=== PATIENT | male | born 1975 | race Caucasian/White ===

== ENCOUNTER 2017-06-02 16:13 | Emergency (ER) | payer SELFPAY ==
[2017-06-02] MEDS ORDERED: Ketorolac INJ* 30 MG/ML 1 ML VIAL IV PUSH ONE (17:51)
[2017-06-02] MEDS ORDERED: Morphine INJ* 4 MG/ML 1 ML SYRINGE IV ONE (17:51)
[2017-06-02] MEDS ORDERED: NS 0.9% 1000 ML* 2,000 ML IV ONE (17:51)
[2017-06-02] MEDS ORDERED: Ondansetron INJ* 2 MG/ML VIAL IV ONE (17:51)
[2017-06-02 18:11] LABS: Hematocrit 44 % (42-52); Mean Corpuscular HGB Conc 34 g/dl (31-36); Mean Corpuscular Hemoglobin 30 pg (27-31); Mean Corpuscular Volume 87 fL (80-94); Mean Platelet Volume 10 um3 (7.4-10.4); Red Blood Count 5.08 10^6/ul (4.0-5.4); Red Cell Distribution Width 13 % (10.5-15); White Blood Count 12.4 10^3/ul (3.5-10.8)
--- NOTE | 2017-06-02 18:16 | ED ---
GI/ HPI - HPI Summary HPI Summary: 42M w/ PMH of kidney stones presents with left sided flank pain since yesterday. He states he passed one stone yesterday but that he felt another stone behind it. He admits to nausea but denies any v/d/c. He denies any hematuria, frequnecy, urgency. no fevers. just moved here from [facility]. His last kidney stone was 6 years ago. He had lithotripsy done then. Only surgeries previous was for pilondial cyst. - History of Current Complaint Pain Intensity: 9 <Regina Santos - Last Filed: 06/03/17 04:42> <Dianna Adler - Last Filed: 06/04/17 07:44> - History of Current Complaint Chief Complaint: EDFlankPain Time Seen by Provider: 06/02/17 17:39 Stated Complaint: RT SIDE PAIN - Allergy/Home Medications Allergies/Adverse Reactions: Allergies Allergy/AdvReac Type Severity Reaction Status Date / Time No Known Allergies Allergy Verified 06/03/17 13:27 PMH/Surg Hx/FS Hx/Imm Hx Endocrine/Hematology History: Denies: Hx Anticoagulant Therapy, Hx Diabetes Cardiovascular History: Denies: Hx Hypertension History: Reports: Hx Kidney Stones - Immunization History Date of Tetanus Vaccine: unknown Date of Influenza Vaccine: NO Infectious Disease History: Reports: Traveled Outside the [place] in Last 30 Days - Family History Known Family History: Positive: Cardiac Disease - Social History Alcohol Use: None Substance Use Type: Reports: None Smoking Status (MU): Never Smoked Tobacco <Regina Santos - Last Filed: 06/03/17 04:42> Review of Systems Negative: Fever Negative: Chest Pain Negative: Shortness Of Breath Positive: Abdominal Pain, Nausea. Negative: Vomiting All Other Systems Reviewed And Are Negative: Yes <Regina Santos - Last Filed: 06/03/17 04:42> Physical Exam Triage Information Reviewed: Yes Vital Signs On Initial Exam: Initial Vitals Temp Pulse Resp BP Pulse Ox 98.6 F 66 20 128/72 98 06/02/17 16:37 06/02/17 16:37 06/02/17 16:37 06/02/17 16:37 06/02/17 16:37 Vital Signs Reviewed: Yes Appearance: Positive: Pain Distress Skin: Positive: Warm, Dry Head/Face: Positive: Normal Head/Face Inspection Eyes: Positive: Normal, EOMI, PAT, Conjunctiva Clear ENT: Positive: Normal ENT inspection, Pharynx normal, TMs normal Respiratory/Lung Sounds: Positive: Clear to Auscultation, Breath Sounds Present Cardiovascular: Positive: Normal, RRR Abdomen Description: Positive: Soft, CVA Tenderness (L), Other: - tenderness on left side Bowel Sounds: Positive: Present - Ilndsay Coma Scale Coma Scale Total: 15 <Regina Santos - Last Filed: 06/03/17 04:42> Vital Signs On Initial Exam: Initial Vitals Temp Pulse Resp BP Pulse Ox 98.6 F 66 20 128/72 98 06/02/17 16:37 06/02/17 16:37 06/02/17 16:37 06/02/17 16:37 06/02/17 16:37 <Dianna Adler - Last Filed: 06/04/17 07:44> Diagnostics - Vital Signs Vital Signs Temp Pulse Resp BP Pulse Ox 06/02/17 18:02 18 06/02/17 17:36 98.6 F 66 18 128/72 98 06/02/17 16:37 98.6 F 66 20 128/72 98 - Laboratory Lab Results: Lab Results 06/02/17 Range/Units 17:54 WBC 12.4 H (3.5-10.8) 10^3/ul RBC 5.08 (4.0-5.4) 10^6/ul Hgb 15.0 (14.0-18.0) g/dl Hct 44 (42-52) % MCV 87 (80-94) fL MCH 30 (27-31) pg MCHC 34 (31-36) g/dl RDW 13 (10.5-15) % Plt Count 200 (150-450) 10^3/ul MPV 10 (7.4-10.4) um3 Neut % (Auto) 73.2 (38-83) % Lymph % (Auto) 14.1 L (25-47) % [place] % (Auto) 11.7 H (1-9) % Eos % (Auto) 0.6 (0-6) % Baso % (Auto) 0.4 (0-2) % Absolute Neuts (auto) 9.1 H (1.5-7.7) 10^3/ul Absolute Lymphs (auto) 1.7 (1.0-4.8) 10^3/ul Absolute Monos (auto) 1.5 H (0-0.8) 10^3/ul Absolute Eos (auto) 0.1 (0-0.6) 10^3/ul Absolute Basos (auto) 0.1 (0-0.2) 10^3/ul Absolute Nucleated RBC 0.02 10^3/ul Nucleated RBC % 0.1 Result Diagrams: 06/02/17 17:54 06/02/17 17:54 Lab Statement: Any lab studies that have been ordered have been reviewed, and results considered in the medical decision making process. - CT abd CT Interpretation: Positive (See Comments) - IMPRESSION: THERE IS A 4 X 5 MM CALCULUS IN THE PROXIMAL LEFT URETER CAUSING MODERATE TO SEVERE HYDRONEPHROSIS. THERE ARE SEVERAL ADDITIONAL LEFT RENAL CALCULI. CT Interpretation Completed By: Radiologist <Regina Santos - Last Filed: 06/03/17 04:42> - Vital Signs Vital Signs Temp Pulse Resp BP Pulse Ox 06/02/17 19:58 99 F 54 16 117/73 98 06/02/17 18:02 18 06/02/17 17:36 98.6 F 66 18 128/72 98 06/02/17 16:37 98.6 F 66 20 128/72 98 - Laboratory Lab Results: Lab Results 06/02/17 06/02/17 06/02/17 Range/Units 17:54 17:54 19:56 WBC 12.4 H (3.5-10.8) 10^3/ul RBC 5.08 (4.0-5.4) 10^6/ul Hgb 15.0 (14.0-18.0) g/dl Hct 44 (42-52) % MCV 87 (80-94) fL MCH 30 (27-31) pg MCHC 34 (31-36) g/dl RDW 13 (10.5-15) % Plt Count 200 (150-450) 10^3/ul MPV 10 (7.4-10.4) um3 Neut % (Auto) 73.2 (38-83) % Lymph % (Auto) 14.1 L (25-47) % [place] % (Auto) 11.7 H (1-9) % Eos % (Auto) 0.6 (0-6) % Baso % (Auto) 0.4 (0-2) % Absolute Neuts (auto) 9.1 H (1.5-7.7) 10^3/ul Absolute Lymphs (auto) 1.7 (1.0-4.8) 10^3/ul Absolute Monos (auto) 1.5 H (0-0.8) 10^3/ul Absolute Eos (auto) 0.1 (0-0.6) 10^3/ul Absolute Basos (auto) 0.1 (0-0.2) 10^3/ul Absolute Nucleated RBC 0.02 10^3/ul Nucleated RBC % 0.1 Sodium 139 (133-145) mmol/L Potassium 3.7 (3.5-5.0) mmol/L Chloride 105 (101-111) mmol/L Carbon Dioxide 27 (22-32) mmol/L Anion Gap 7 (2-11) mmol/L BUN 16 (6-24) mg/dL Creatinine 1.44 H (0.67-1.17) mg/dL Est GFR ( Amer) 68.9 (>60) Est GFR (Non-Af Amer) 53.5 (>60) BUN/Creatinine Ratio 11.1 (8-20) Glucose 95 (70-100) mg/dL Calcium 9.2 (8.6-10.3) mg/dL Total Bilirubin 1.00 (0.2-1.0) mg/dL AST 18 (13-39) U/L ALT 9 (7-52) U/L Alkaline Phosphatase 46 (34-104) U/L C-React Prot High Sens 4.84 mg/L Total Protein 7.0 (6.4-8.9) g/dL Albumin 4.2 (3.2-5.2) g/dL Globulin 2.8 (2-4) g/dL Albumin/Globulin Ratio 1.5 (1-3) Lipase 17 (11.0-82.0) U/L Urine Color Yellow Urine Appearance Clear Urine pH 5.0 (5-9) Ur Specific [place] 1.030 (1.010-1.030) Urine Protein Negative (Negative) Urine Ketones 1+ H (Negative) Urine Blood Negative (Negative) Urine Nitrate Negative (Negative) Urine Bilirubin Negative (Negative) Urine Urobilinogen Negative (Negative) Ur Leukocyte Esterase Negative (Negative) Urine Glucose Negative (Negative) Urine Ascorbic Acid * H (Negative) Result Diagrams: 06/02/17 17:54 06/02/17 17:54 Lab Statement: Any lab studies that have been ordered have been reviewed, and results considered in the medical decision making process. <Dianna Adler - Last Filed: 06/04/17 07:44> GIGU Course/Dx - Course Course Of Treatment: 42M w/ PMH of kidney stones presents with left sided flank pain since yesterday. He states he passed one stone yesterday but that he felt another stone behind it. He admits to nausea but denies any v/d/c. He denies any hematuria, frequnecy, urgency. no fevers. on exam pos CVA left. u/a normal. CT shows 5mm stone. patient comfortable after morphine so will d/c home to follow up with urology. patient understands and agrees with plan. - Diagnoses Differential Diagnoses - Male: Pyelonephritis, Ureteral Calculi, Urinary Tract Infection <Regina Santos - Last Filed: 06/03/17 04:42> <Dianna Adler - Last Filed: 06/04/17 07:44> - Diagnoses Provider Diagnoses: Kidney stone Discharge <Regina Santos - Last Filed: 06/03/17 04:42> <Dianna Adler - Last Filed: 06/04/17 07:44> - Discharge Plan Condition: Good Disposition: HOME Prescriptions: Ondansetron ODT TAB* [Zofran 4 MG Odt TAB*] 4 mg PO Q6H PRN #16 tab.odt PRN Reason: Nausea Tamsulosin CAP* [Flomax CAP*] 0.4 mg PO DAILY #7 cap oxyCODONE/Acetamin 5/325 MG* [Percocet 5/325 TAB*] 1 tab PO Q6H PRN #20 tab MDD 4 PRN Reason: Pain Patient Education Materials: Kidney Stones (ED) Referrals: Pernell Gambino MD [Medical Doctor] - [facility] [Outside] Additional Instructions: Take ibuprofen every 6 hours and narcotic as needed every 6 hours Take Zofran every 6 hours for nausea as needed Take Flomax daily starting tomorrow, first dose given in ED until stone expelled , make sure stand up slowly Follow up with urology, call office tomorrow for appointment Strain urine until collect stone Return to ED if unable to manage pain at home, develop fever, or any new or worsening symptoms Attestation Statement User Type: Provider - I was available for consult. This patient was seen by the ÁNGELA. The patient was not presented to, seen by, or examined by me. -Radames <Dianna Adler - Last Filed: 06/04/17 07:44>
[2017-06-02 18:29] LABS: Albumin 4.2 g/dL (3.2-5.2); BUN/Creatinine Ratio 11.1 (8-20); Calcium 9.2 mg/dL (8.6-10.3); EGFR African American 68.9 (>60); EGFR Non-African American 53.5 (>60); Globulin 2.8 g/dL (2-4); Potassium 3.7 mmol/L (3.5-5.0)
--- NOTE | 2017-06-02 18:44 | RAD ---
INDICATION: Left flank abdominal pain. COMPARISON: There are no prior studies available for comparison. TECHNIQUE: A CT scan of the abdomen and pelvis was performed without intravenous or oral contrast. Contiguous axial sections were obtained from the lung bases through the symphysis pubis. Images were reconstructed in the coronal and sagittal planes. FINDINGS: There is mild dependent bilateral lower lobe subsegmental atelectasis. No pleural effusion is present. The liver and spleen are within normal limits in size without significant focal abnormality on this noncontrast study. No calcified gallstones are seen. The pancreas appears to be within normal limits in size. The adrenal glands appear to be within normal limits. The right kidney appears normal. There are couple punctate calculi in the upper pole of the left kidney and a 0.9 cm calculus in the lower pole of the left kidney. The left kidney is enlarged. There is relatively prominent perinephric stranding. There is dilatation of the renal calyces and pelvis to the level of a 4 x 5 mm calculus in the proximal left ureter. This is causing moderate to severe hydronephrosis. No bladder calculi are seen. The aorta is normal in caliber without significant calcific plaque. No significant enlarged retroperitoneal lymph nodes are seen. The stomach, small and large bowel appear nondistended. The appendix is within normal limits. There are a few scattered diverticuli in the descending and sigmoid colon without evidence for diverticulitis. No free intraperitoneal air or fluid is seen. No significant focal osseous abnormality is seen. IMPRESSION: THERE IS A 4 X 5 MM CALCULUS IN THE PROXIMAL LEFT URETER CAUSING MODERATE TO SEVERE HYDRONEPHROSIS. THERE ARE SEVERAL ADDITIONAL LEFT RENAL CALCULI.
[2017-06-02 20:02] VITALS: BP 117/73
[2017-06-02 20:05] LABS: Urine Bilirubin Negative (Negative); Urine Glucose Negative (Negative); Urine Nitrite Negative (Negative)
[2017-06-02] MEDS ORDERED: Tamsulosin CAP* 0.4 MG PO ONE (20:06)
== END 2017-06-02 20:26 | disposition home or self-care (01) ==
LOC: ED 16:13
DX: N20.0 Calculus of kidney (principal); R10.84 Generalized abdominal pain; R11.0 Nausea; Z87.442 Personal history of urinary calculi
CPT/HCPCS: 36415; 74176; 80053; 81003; 83690; 85025; 86141; 96374; 96375; 99282; J1885; J2270; J2405

== ENCOUNTER 2017-06-03 13:22 | Day surgery (SDC) | payer OTHER ==
--- NOTE | 2017-06-03 13:55 | HP ---
DATE OF ADMISSION: 06/03/2017. AGE: 42-year-old male. ADMITTING DIAGNOSES: 1. Left hydronephrosis. 2. Calculus left proximal ureter. 3. Calculus left kidney. PLANNED PROCEDURE: Left retrograde and left stent insertion (to be followed in near future by shockwave lithotripsy). SURGEON: Dr. Giuseppe Salas. HISTORY OF PRESENT ILLNESS: Cristino Zambrano is a 42-year-old gentleman who is visiting from [facility]. He has a history of recurrent bilateral renal calculi. He had been in the emergency room for left flank pain and nausea and was noted to have what was described as a 5 mm calculus in the proximal left ureter with moderate to severe hydronephrosis. In addition, there was a 9 mm calculus in the lower pole of the left kidney. He was seen in my office earlier today and continues to have fairly severe pain, nausea and vomiting in spite of taking Percocet. Ultrasound revealed a 6.5 mm calculus in the proximal left ureter with an additional 1 cm calculus in the left kidney with persistent hydronephrosis. He was given the option of trying to continue conservative management with Flomax, but because of the severity of the pain in spite of the Percocet, he opted for and is now being brought in for urgent left stent insertion to be followed in the near future by lithotripsy. PAST MEDICAL HISTORY: Significant for recurrent renal calculi. PAST SURGICAL HISTORY: Significant for surgery for pilonidal cyst, lithotripsy for renal calculi, ureteroscopy and stent insertion. MEDICATIONS ON ADMISSION: Flomax 0.4 mg once a day, Percocet and Zofran prn. ALLERGIES: No known drug allergies. REVIEW OF SYSTEMS: He is otherwise in excellent health. There is no history of diabetes mellitus or any other major systemic illness. There is no history of chest pain or shortness of breath. PHYSICAL EXAMINATION GENERAL: Very uncomfortable-appearing young gentleman. VITAL SIGNS: Blood pressure 120/78, pulse 65 per minute, temperature 97.2, oxygen saturation 96 percent on room air. CARDIOVASCULAR: Regular rate and rhythm. S1, S2. LUNGS: Clear bilaterally. ABDOMEN: Soft with left flank tenderness. IMPRESSION: I reviewed the CT and ultrasound and had a detailed discussion with the patient and his regarding the management options. Again, I did give him the option of trying to continue conservative management to see if the stone will progress distally into the ureter, but because of the intensity of the pain in spite of Percocet, he would like to go ahead and proceed with urgent left stent insertion. I explained the need for a two stage procedure for stent insertion to be followed in the near future by lithotripsy when the lithotripsy machine becomes available, and he understands and agrees with that. PLAN: Left retrograde and left stent insertion. [id number]/[facility] #: [id number] RONALD
[2017-06-03] MEDS ORDERED: cefTRIAXone(*) 2 GM ADDV.VIAL IVPB ONE (14:37)
[2017-06-03] MEDS ORDERED: Iohexol 180 (CONTRAST) 10 ML SDV IV ONE (14:44)
[2017-06-03] MEDS ORDERED: Famotidine IV* 10 MG/ML 2 ML (20 mg) IV ONE (15:32)
[2017-06-03] MEDS ORDERED: Dexamethasone IV* 4 MG/ML 1 ML (4 MG) IV SLOW PU ONE (15:32)
[2017-06-03] MEDS ORDERED: Buffered Lidocaine 0.9% SYRIN* 5 ML/SYR SYRINGE INTRADERM ONE (15:32)
[2017-06-03] MEDS ORDERED: Famotidine IV* 10 MG/ML 2 ML (20 mg) ONE (15:58)
[2017-06-03] MEDS ORDERED: Dexamethasone IV* 4 MG/ML 1 ML (4 MG) ONE (15:58)
[2017-06-03] MEDS ORDERED: Midazolam* 1 MG/ML 5 ML VIAL (5 MG) ONE (16:27)
[2017-06-03] MEDS ORDERED: Scopolamine 1.5 mg* PATCH TRANSDERM PRN (16:32)
[2017-06-03] MEDS ORDERED: Ondansetron INJ* 2 MG/ML VIAL IV PRN (16:32)
[2017-06-03] MEDS ORDERED: HYDROmorphone* 1 MG/ML 1 ML SYR IV PRN (16:32)
[2017-06-03] MEDS ORDERED: fentaNYL* 50 MCG/ML 2 ML VIAL (100 MCG VIAL) IV PRN (16:32)
[2017-06-03] MEDS ORDERED: DiMENhydriNATE IV* 50 MG/ML VIAL IV PUSH PRN (16:32)
[2017-06-03] MEDS ORDERED: oxyCODONE/Acetamin 5/325 MG* TAB PO PRN (16:32)
[2017-06-03] MEDS ORDERED: fentaNYL* 50 MCG/ML 5 ML VIAL (250 MCG VIAL) ONE (16:47)
[2017-06-03] MEDS ORDERED: Lidocaine 2% PF * 5 ML VIAL ONE (16:47)
[2017-06-03] MEDS ORDERED: Ondansetron INJ* 2 MG/ML VIAL ONE (16:47)
[2017-06-03] MEDS ORDERED: Propofol* 10 MG/ML 20 ML BTL IV PUSH ONE (16:47)
[2017-06-03] MEDS ORDERED: Glycopyrrolate IV* 0.2 MG/ML 1 ML VIAL ONE (17:21)
[2017-06-03] MEDS ORDERED: Tamsulosin CAP* 0.4 MG ONE (18:22)
[2017-06-03 18:48] VITALS: BP 129/86
--- NOTE | 2017-06-03 20:10 | RAD ---
CPT II Codes: 6045F INDICATION: Left ureteral stent TECHNIQUE: Intraoperative fluoroscopy was provided during retrograde pyelogram and left ureteral stent placement. FINDINGS: 4 spot films depict retrograde pyelogram with anatomic placement of a left ureteral stent. Fluoroscopy time: 10 seconds IMPRESSION: As above.
--- NOTE | 2017-06-03 20:51 | RAD ---
INDICATION: Status post left ureteral stent placement COMPARISON: Preoperative KUB dated June 03, 2017 acquired at 1058 hours TECHNIQUE: 2 views the abdomen were obtained. FINDINGS: At approximately the L2/L3 level there is a 7 mm calcification at the expected location of the left lower pole collecting system similar in appearance to the previous KUB. There is been anatomic alignment of a left ureteral stent. No large calcifications are seen overlying the course of the left ureter. IMPRESSION: ANATOMIC PLACEMENT OF A LEFT URETERAL STENT WITH A STABLE 7 MM CALCIFICATION AT THE LEFT LOWER POLE COLLECTING SYSTEM.
--- NOTE | 2017-06-04 05:10 | OP ---
DATE OF OPERATION: 06/03/17 - SDS DATE OF : [birth year] - AGE: 42 years, male. SURGEON: Giuseppe Salas MD ANESTHESIOLOGIST: Dr. Dial. ANESTHESIA: General. PRE-OP DIAGNOSES: 1. Left hydronephrosis. 2. Obstructing calculus, left proximal ureter. 3. Left renal calculus. POST-OP DIAGNOSES: 1. Left hydronephrosis. 2. Obstructing calculus, left proximal ureter. 3. Left renal calculus. OPERATIVE PROCEDURE: Cystoscopy, left retrograde pyelogram, left ureteral calculus manipulation, and left stent insertion. COMPLICATIONS: None. POSTOPERATIVE CONDITION: Stable. STENT USED: 6-Kyrgyz stent, left ureter. INDICATIONS: Cristino Zambrano is a 42-year-old gentleman who is visiting from [facility]. He has a history of recurrent renal calculi. He presented with left flank pain, nausea, and vomiting, and was noted to have an approximately 6-mm calculus in the proximal left ureter causing left hydronephrosis. In addition, he has a 9-mm calculus in the left kidney. He is being brought in for urgent left stent insertion to be followed in the near future by lithotripsy. OPERATIVE FINDINGS: 1. Small polyp in bulbar urethra. 2. Mild median lobe enlargement. 3. Mildly trabeculated bladder. 4. Obstructing calculus, left proximal ureter causing left hydronephrosis. DESCRIPTION OF PROCEDURE: After induction of general anesthesia, the patient was placed in dorsal lithotomy position. Sequential compression devices were in place and functioning. Initial cystoscopy revealed a normal anterior urethra. In the proximal bulbar urethra on the dorsal aspect, there was a polyp projecting from the dorsal aspect of the mucosa into the lumen. The remainder of the urethra was unremarkable. There was mild enlargement of the median lobe of the prostate and mildly trabeculated bladder. Clear efflux was noted from the right orifice. There was no efflux noted from the left orifice suggesting a complete obstruction. Left retrograde pyelogram revealed fullness of the left collecting system consistent with hydronephrosis. A 4-Kyrgyz open-ended catheter was introduced and advanced over the wire. The ureter was fairly narrow and resistance was encountered at the location of the calculus in the proximal ureter. The calculus was carefully manipulated proximally and a 6-Kyrgyz stent was introduced and positioned under fluoroscopy with good proximal and distal positioning obtained. The bladder was emptied. The patient tolerated the procedure satisfactorily and was transferred back to the recovery area in stable condition. [id number]/[facility] #: [id number] MTDD
[2017-06-06] MEDS ORDERED: Scopolomine PATCH Remove* 1 NOTE MISC PATCH OFF ONE (16:33)
== END 2017-06-03 19:27 | disposition home or self-care (01) ==
LOC: OR 13:22
PROVIDERS: ATTEND Urology
DX: N13.2 Hydronephrosis with renal and ureteral calculous obstruction (principal)
CPT/HCPCS: 74000; 74420; C1876; J0696; J1100; J1580; J2250; J2405; J2704; J3010

== ENCOUNTER 2017-06-09 08:18 | Day surgery (SDC) | payer OTHER ==
--- NOTE | 2017-06-06 15:49 | HP ---
HISTORY AND PHYSICAL: DATE OF PLANNED ADMISSION AND SURGERY: 06/09/17 HISTORY OF PRESENT ILLNESS: Mr. Zambrano is a 42-year-old white male who is admitted with left renal calculi, status post placement of left ureteral stent for shockwave lithotripsy of left renal calculi and cystoscopy with removal of left ureteral stent. Mr. Zambrano had past history of renal calculus disease and in the past had required shockwave lithotripsy and ureteroscopy for stone extractions. He presented to the emergency room on 06/02/17 with symptoms of left renal colic. A noncontrast CT of the abdomen showed a 1 cm calculus in the lower pole calyx of the left kidney, moderate left hydronephrosis and a 6 mm calculus in the proximal left ureter causing the obstruction. The patient was managed conservatively; however, he remained in a lot of pain. He was taken to the operating room by Dr. Salas on 06/03/17 and had a cystoscopy and placement of left ureteral stent. He did much better after the procedure with resolution of his pain. Postoperative KUB showed the stent to be in good position and there were 2 Lt renal calculi accounting for the calculi seen on the CT, both located in the lower pole calyx of the left kidney. The patient is now admitted for shockwave lithotripsy of the left renal calculi followed by cystoscopy and removal of the left ureteral stent. PAST MEDICAL HISTORY AND SYSTEM REVIEW: He is very healthy. No history of any cardiac or pulmonary diseases or symptoms. He is on no chronic medications and he denies any allergies to medications. PHYSICAL EXAMINATION His physical examination by Dr. Salas showed no change on his exam compared to his postoperative visit. IMPRESSION: Left renal calculi, status post placement of left ureteral stent. PLAN: For shockwave lithotripsy of the left renal calculi followed by cystoscopy and removal of the left ureteral stent. I discussed the above plans in detail with the patient. Some of the potential complications including gross hematuria, small incidence of perinephric hematoma , postoperative renal colic were all discussed. All his questions were answered. [id number]/[facility] #: [id number] MTDD
[~2017-06-09 08:18] MED LIST: Buffered Lidocaine 0.9% SYRIN* 5 ML/SYR SYRINGE INTRADERM ONE; Famotidine IV* 10 MG/ML 2 ML (20 mg) IV ONE
[2017-06-09] MEDS ORDERED: Famotidine IV* 10 MG/ML 2 ML (20 mg) ONE (08:43)
[2017-06-09] MEDS ORDERED: Buffered Lidocaine 0.9% SYRIN* 5 ML/SYR SYRINGE ONE (08:44)
[2017-06-09] MEDS ORDERED: cefTRIAXone(*) 2 GM ADDV.VIAL IVPB ONE (08:44)
--- NOTE | 2017-06-09 09:04 | RAD ---
HISTORY: Shock wave lithotripsy COMPARISONS: June 03, 2017 VIEWS: Frontal views of the abdomen. FINDINGS: BOWEL: There is a nonspecific bowel gas pattern, with nondilated small bowel gas noted. CALCULI: Again noted is a left ureteral stent. There is a 0.7 cm calculus overlying the left renal parenchymal shadow. There is a 0.4 cm calculus overlying the proximal left ureter. BONES AND SOFT TISSUES: There are no osseous abnormalities. OTHER FINDINGS: The lung bases are clear. There is no subphrenic gas. IMPRESSION: LEFT NEPHROLITHIASIS WITH A LEFT URETERAL STENT.
[2017-06-09] MEDS ORDERED: fentaNYL* 50 MCG/ML 2 ML VIAL (100 MCG VIAL) ONE (10:14)
[2017-06-09] MEDS ORDERED: Midazolam* 1 MG/ML 5 ML VIAL (5 MG) ONE (10:14)
[2017-06-09] MEDS ORDERED: Lidocaine 2% PF * 5 ML VIAL ONE (10:15)
[2017-06-09] MEDS ORDERED: Ketorolac INJ* 30 MG/ML 1 ML VIAL ONE (10:15)
[2017-06-09] MEDS ORDERED: Propofol* 10 MG/ML 20 ML BTL IV PUSH ONE ×2 (10:15→11:36)
[2017-06-09] MEDS ORDERED: Dexamethasone IV* 4 MG/ML 1 ML (4 MG) ONE (10:15)
[2017-06-09] MEDS ORDERED: Ondansetron INJ* 2 MG/ML VIAL ONE (10:15)
[2017-06-09] MEDS ORDERED: Acetaminophen TAB* 325 MG PO PRN (11:50)
[2017-06-09] MEDS ORDERED: HYDROmorphone* 1 MG/ML 1 ML SYR IV PRN (11:50)
[2017-06-09] MEDS ORDERED: oxyCODONE TAB* 5 MG TAB PO PRN (11:50)
[2017-06-09] MEDS ORDERED: DiMENhydriNATE IV* 50 MG/ML VIAL IV PUSH PRN (11:50)
[2017-06-09 12:06] LABS: BUN/Creatinine Ratio 14.5 (8-20); Blood Urea Nitrogen 11 mg/dL (6-24); CO2 Carbon Dioxide 27 mmol/L (22-32); Calcium 8.7 mg/dL (8.6-10.3); Chloride 106 mmol/L (101-111); EGFR Non-African American 111.9 (>60); Glucose 103 mg/dL (70-100); Sodium 135 mmol/L (133-145)
[2017-06-09 12:12] LABS: Anion Gap 2 mmol/L (2-11)
[2017-06-09 12:59] VITALS: BP 119/92
--- NOTE | 2017-06-10 00:17 | OP ---
DATE OF OPERATION: 06/09/17 [facility] DATE OF : 73 SURGEON: Pernell Gambino MD ANESTHESIOLOGIST: Celsa Villegas MD ANESTHESIA: MAC PRE-OP DIAGNOSES: 1. Left renal calculus (1 cm). 2. Proximal left ureteral calculus (6 mm). 3. Status post placement of left ureteral stent. POST-OP DIAGNOSES: 1. Left renal calculus (1 cm). 2. Proximal left ureteral calculus (6 mm). 3. Status post placement of left ureteral stent. OPERATIVE PROCEDURE: Shockwave lithotripsy of left renal and left ureteral calculi. INDICATION FOR PROCEDURE: Mr. Zambrano is a 42-year-old white male who is a known stone former and who presented last week with symptoms of left renal colic. Noncontrast CT showed a 6-mm proximal left ureteral calculus and a 1 cm calculus in the lower pole calyx of the left kidney. The patient had urgent placement of a left ureteral stent 6 days ago. He is now admitted for the above procedures. PATHOLOGY: Preoperative KUB showed the left ureteral stent in good position. A 1 cm radiopaque calculus was noted in the lower pole calyx of the left kidney and a 6-mm calculus along the stent at the level of the ureteropelvic junction. No other abnormal calcifications were noted. DESCRIPTION OF PROCEDURE: After successful general anesthesia, the patient was placed in the supine position on the shockwave lithotripsy table. The calculus in the proximal left ureter was visualized in the PA and in the oblique x-ray views and the position of the generator was adjusted to have the stone in the focus of the shockwaves. A total of 1700 shocks were then delivered at the rate of 90 shocks per minute. There seemed to be good fragmentation of the stone. Attention was then directed to the left renal calculus and 700 shocks were then delivered. There was also good fragmentation of the stone, which broke into 3 or 4 fragments. The patient tolerated the procedures well. Because of the expected edema in the left ureter from the shockwave lithotripsy , it was decided not to remove the stent at this time. The patient will be seen in the office next week and a KUB will be obtained and the stent most likely will be removed under local anesthesia in the office. [id number]/[facility] #: [id number] [facility]
== END 2017-06-09 13:00 | disposition home or self-care (01) ==
LOC: OR 08:18
PROVIDERS: ATTEND Urology
DX: N20.2 Calculus of kidney with calculus of ureter (principal); Z87.442 Personal history of urinary calculi
CPT/HCPCS: 36415; 74000; 80048; 85610; 85730; J0696; J1100; J1885; J2250; J2405; J2704; J3010